=== PATIENT | female | born 2000 | race Caucasian/White ===

== ENCOUNTER 2018-10-10 11:07 | Inpatient (IN) ==
--- NOTE | 2018-10-10 12:04 | Emergency Department Note ---
Disposition Clinical Impression: Suicidal ideation Disposition: Admitted As Inpatient Condition: Fair Referrals: NONE,PCP [Primary Care Provider] - Forms: ED Satisfaction Letter Time of Disposition: 15:27 General Adult HPI - General Chief complaint: ED Psychiatric Symptoms Stated complaint: SI Time Seen by Provider: 10/10/18 11:15 Source: patient, EMS Nursing Notes Reviewed: Yes Vital Signs Reviewed: Yes - History of Present Illness HPI Narrative: She presents with complaints of suicidal ideation which is worsening for the last several days, she does have a plan to take sleeping pills, no homicidal ideation, no visual or auditory hallucinations. Does have constant chest pain since she was a child which is unchanged from baseline. Nonexertional. No diaphoresis or dyspnea. She denies any pain or swelling of the lower extremities. Social history: No smoking, alcohol, drugs Pain Scale: 0 - Related Data Home Medications Medication Instructions Recorded Confirmed Omeprazole 02/16/18 Ventolin Hfa 02/16/18 Albuterol Inhaler 05/07/18 Cetirizine HCl 05/07/18 Effexor 05/07/18 Singulair 05/07/18 Previous Rx's Medication Instructions Recorded Ondansetron ODT [Zofran ODT] 4 mg SL Q6HR PRN #10 tab.rapdis 08/02/18 Allergies Allergy/AdvReac Type Severity Reaction Status Date / Time dicyclomine [From Bentyl] AdvReac Numbness Verified 10/06/18 08:51 Review of Systems: Constitutional: No fever Vision: No blurred vision ENT: No rhinorrhea Respiratory: No cough Allergic: No allergies : No blood in urine GI: No blood in stool Hematologic: No bruising Dermatologic: No skin rash Musculoskeletal: No pain in the extremities Neuro: No numbness of the extremities Past Medical History - Past Medical History Medical history: Reports: GERD, other Surgical history: Reports: orthopedic, other Psychiatric history: Reports: anxiety, depression, PTSD [employer] history: Reports: polycystic ovary syndrome - Social History Smoking Status: Never smoker Smokeless Tobacco Status: No Alcohol use: Reports: none Drug use: Reports: marijuana, other Physical Exam CONSTITUTIONAL: Alert and oriented X3, well-nourished, well appearing, in no apparent distress HEAD: Normocephalic; atraumatic. EYES: PERRL, no scleral icterus. NOSE: The nose is normal in appearance without rhinorrhea RESP: Normal chest excursion with respiration; breath sounds clear and equal bilaterally; no wheezes, rhonchi, or rales CARD: Regular rhythm, without murmurs, rub or gallop ABD: Non-distended; non-tender, soft,without rigidity, rebound or guarding SKIN: Normal for age and race; warm and dry; no apparent lesions - General General appearance: alert Course Vital Signs Temperature 97.9 F 10/10/18 11:16 Pulse Rate 95 10/10/18 11:16 Respiratory Rate 17 10/10/18 11:16 Blood Pressure 147/110 10/10/18 11:16 O2 Sat by Pulse Oximetry 98 10/10/18 11:16 Temperature 97.9 F 10/10/18 11:16 Pulse Rate 95 10/10/18 11:16 Respiratory Rate 17 10/10/18 11:16 Blood Pressure 147/110 10/10/18 11:16 O2 Sat by Pulse Oximetry 98 10/10/18 11:16 Oxygen Delivery Oxygen Delivery Room Air Medical Decision Making - [facility] Narrative Medical decision making narrative: Patient does have labs and urine tests are ordered and will be seen by mental health. [place] slip is signed. 1204 - Lab Data Result diagrams: 10/10/18 12:40 10/10/18 12:40 Lab Results 10/10/18 10/10/18 10/10/18 Range/Units 11:33 11:33 11:33 WBC (4.3-11.1) K/mcL RBC (3.82-4.97) M/mcL Hgb (11.5-15.4) g/dL Hct (35.3-44.9) % MCV (83.0-100.0) fL MCH (28.0-33.3) pg MCHC (31.6-35.5) g/dL RDW (11.5-14.5) % Plt Count (140-400) K/mcL MPV (9.4-12.4) fL Immature Gran % (0-4) % Seg Neutrophils % % Lymphocytes % % Monocytes % % Eosinophils % % Basophils % % Neutrophils # (1.6-8.9) K/mcL Lymphocytes # (0.6-4.6) K/mcL Monocytes # (0.0-1.3) K/mcL Eosinophils # (0.0-0.6) K/mcL Basophils # (0.0-0.2) K/mcL Sodium (136-145) mEq/L Potassium (3.5-5.1) mEq/L Chloride (98-107) mEq/L Carbon Dioxide (23-29) mEq/L BUN (6-20) mg/dL Creatinine (0.60-1.20) mg/dL Est GFR ( Amer) (> 60) Est GFR (Non-Af Amer) (> 60) BUN/Creatinine Ratio (6-26) Glucose (70-105) mg/dL Calculated Osmolality (280-300) Calcium (8.6-10.3) mg/dL Urine Color Yellow (Yellow) Urine Clarity Clear (Clear) Urine pH 7.0 (5.0-8.0) pH Units Ur Specific [place] 1.022 (1.010-1.025) Urine Protein Negative (Neg-Trace) mg/dL Urine Glucose (UA) Normal (Normal) mg/dL Urine Ketones Negative (Negative) mg/dL Urine Blood Trace H (Negative) Urine Nitrite Negative (Negative) Urine Bilirubin Negative (Negative) Urine Urobilinogen Normal (Normal) mg/dL Ur Leukocyte Esterase Negative (Negative) Urine Microscopic RBC 3-5 H (0-3) per hpf Urine Microscopic WBC 3-5 H (0-3) per hpf Ur Squamous Epith Cells Many H (None-Few) per lpf Urine Bacteria None Seen (None-Few) per hpf Hyaline Casts None Seen (None-Few) per lpf Urine Test Negative (Negative) Salicylates (15.0-30.0) mg/dL Urine Opiates Screen Negative (Pzhdtt=661) ng/mL Acetaminophen (10-20) mcg/mL Ur Barbiturates Screen Negative (Rsnnpe=304) ng/mL Ur Phencyclidine Scrn Negative (Cutoff=25) ng/mL Ur Amphetamines Screen Negative (Erpbkg=7882) ng/mL U Benzodiazepines Scrn Negative (Dipxxq=205) ng/mL Urine Cocaine Screen Negative (Cutoff= 300) ng/mL U Marijuana (THC) Screen Negative (Cutoff = 50) ng/mL Ur Drug Screen Interp See Below Ethyl Alcohol (Less than 10) mg/dL 10/10/18 10/10/18 Range/Units 12:40 12:40 WBC 8.6 (4.3-11.1) K/mcL RBC 5.01 H (3.82-4.97) M/mcL Hgb 13.7 (11.5-15.4) g/dL Hct 41.0 (35.3-44.9) % MCV 81.8 L (83.0-100.0) fL MCH 27.3 L (28.0-33.3) pg MCHC 33.4 (31.6-35.5) g/dL RDW 12.7 (11.5-14.5) % Plt Count 333 (140-400) K/mcL MPV 8.6 L (9.4-12.4) fL Immature Gran % 0.3 (0-4) % Seg Neutrophils % 70.5 % Lymphocytes % 18.4 % Monocytes % 8.6 % Eosinophils % 1.5 % Basophils % 0.7 % Neutrophils # 6.1 (1.6-8.9) K/mcL Lymphocytes # 1.6 (0.6-4.6) K/mcL Monocytes # 0.7 (0.0-1.3) K/mcL Eosinophils # 0.1 (0.0-0.6) K/mcL Basophils # 0.1 (0.0-0.2) K/mcL Sodium 139 (136-145) mEq/L Potassium 3.9 (3.5-5.1) mEq/L Chloride 105 (98-107) mEq/L Carbon Dioxide 26 (23-29) mEq/L BUN 12 (6-20) mg/dL Creatinine 0.68 (0.60-1.20) mg/dL Est GFR ( Amer) > 60 (> 60) Est GFR (Non-Af Amer) > 60 (> 60) BUN/Creatinine Ratio 18 (6-26) Glucose 95 (70-105) mg/dL Calculated Osmolality 288 (280-300) Calcium 9.4 (8.6-10.3) mg/dL Urine Color (Yellow) Urine Clarity (Clear) Urine pH (5.0-8.0) pH Units Ur Specific [place] (1.010-1.025) Urine Protein (Neg-Trace) mg/dL Urine Glucose (UA) (Normal) mg/dL Urine Ketones (Negative) mg/dL Urine Blood (Negative) Urine Nitrite (Negative) Urine Bilirubin (Negative) Urine Urobilinogen (Normal) mg/dL Ur Leukocyte Esterase (Negative) Urine Microscopic RBC (0-3) per hpf Urine Microscopic WBC (0-3) per hpf Ur Squamous Epith Cells (None-Few) per lpf Urine Bacteria (None-Few) per hpf Hyaline Casts (None-Few) per lpf Urine Test (Negative) Salicylates < 2.5 L (15.0-30.0) mg/dL Urine Opiates Screen (Yzkcir=296) ng/mL Acetaminophen < 10 L (10-20) mcg/mL Ur Barbiturates Screen (Lkcacu=536) ng/mL Ur Phencyclidine Scrn (Cutoff=25) ng/mL Ur Amphetamines Screen (Lipzjz=2504) ng/mL U Benzodiazepines Scrn (Qgqcmx=498) ng/mL Urine Cocaine Screen (Cutoff= 300) ng/mL U Marijuana (THC) Screen (Cutoff = 50) ng/mL Ur Drug Screen Interp Ethyl Alcohol < 10 (Less than 10) mg/dL
[2018-10-10 12:32] LABS: Bilirubin,Urine Negative (Negative); Blood,Urine Trace (Negative); Clarity,Urine Clear (Clear); Color,Urine Yellow (Yellow); Glucose,Urine (UA) Normal (Normal); Ketones,Urine Negative (Negative); Leukocyte Esterase,Urine Negative (Negative); Nitrite,Urine Negative (Negative); Protein,Urine Negative (Neg-Trace); Specific Gravity,Urine 1.022 (1.010-1.025); Urobilinogen,Urine Normal (Normal)
[2018-10-10 12:35] LABS: Bacteria,Urine None Seen per hpf (None-Few); Hyaline Casts,Urine None Seen per lpf (None-Few); Squamous Epithelial Cell,Urine Many per lpf (None-Few)
[2018-10-10 12:40] LABS: Amphetamine Screen,Urine Negative ng/mL (Cutoff=1000); Barbiturate Screen,Urine Negative ng/mL (Cutoff=200); Benzodiazepines Screen,Urine Negative ng/mL (Cutoff=200); Cannabinoid Screen,Urine Negative ng/mL (Cutoff = 50); Cocaine Screen,Urine Negative ng/mL (Cutoff= 300); Opiate Screen,Urine Negative ng/mL (Cutoff=300); Phencyclidine Screen,Urine Negative ng/mL (Cutoff=25)
[2018-10-10 13:12] LABS: Basophils # 0.1 K/mcL (0.0-0.2); Basophils % 0.7 %; Eosinophils # 0.1 K/mcL (0.0-0.6); Eosinophils % 1.5 %; Hemoglobin 13.7 g/dL (11.5-15.4); Immature Granulocytes % 0.3 % (0-4); Lymphocytes # 1.6 K/mcL (0.6-4.6); Lymphocytes % 18.4 %; Mean Corpuscular HGB Conc 33.4 g/dL (31.6-35.5); Mean Corpuscular Hemoglobin 27.3 pg (28.0-33.3); Mean Corpuscular Volume 81.8 fL (83.0-100.0); Mean Platelet Volume 8.6 fL (9.4-12.4); Monocytes # 0.7 K/mcL (0.0-1.3); Monocytes % 8.6 %; Neutrophils # 6.1 K/mcL (1.6-8.9); Platelet Count 333 K/mcL (140-400); Red Blood Count 5.01 M/mcL (3.82-4.97); Red Cell Distribution Width 12.7 % (11.5-14.5); Segmented Neutrophils % 70.5 %
[2018-10-10 13:33] LABS: Acetaminophen < 10 mcg/mL (10-20); BUN/Creatinine Ratio 18 (6-26); Blood Urea Nitrogen 12 mg/dL (6-20); Calcium 9.4 mg/dL (8.6-10.3); Carbon Dioxide 26 mEq/L (23-29); Chloride 105 mEq/L (98-107); Ethanol < 10 mg/dL (Less than 10); Glucose 95 mg/dL (70-105); Osmolality,Calculated 288 (280-300); Potassium 3.9 mEq/L (3.5-5.1); Salicylate < 2.5 mg/dL (15.0-30.0); Sodium 139 mEq/L (136-145); eGFR For Non-African Americans > 60 (> 60)
[2018-10-10] MEDS ORDERED: Mag Hydrox/Al Hydrox/Simeth 30 ML UDC PO PRN (15:49)
[2018-10-10] MEDS ORDERED: Haloperidol Lactate 5 MG/ML VIAL IM PRN (15:49)
[2018-10-10] MEDS ORDERED: *HR* LORazepam 2 MG/ML VIAL IM PRN (15:49)
[2018-10-10] MEDS ORDERED: Acetaminophen 325 MG TABLET PO PRN (15:49)
[2018-10-10] MEDS ORDERED: MOM Conc 10 ML UD.LIQ PO PRN (15:49)
[2018-10-10] MEDS ORDERED: traZODone 50 MG TABLET PO PRN (15:49)
[2018-10-10] MEDS ORDERED: *HR* LORazepam 1 MG TABLET PO PRN (15:49)
[2018-10-10] MEDS: hydrOXYzine pamoate 25 MG CAPSULE PO PRN (20:57)
--- NOTE | 2018-10-11 08:33 | Psychiatry History & Physical ---
Date of Encounter: 10/11/18 Time of Encounter: 08:52 History of Present Illness Patient Stated Chief Complaint: "I'm just so depressed" Medicare Admission Attestation: For traditional Medicare patients the provided hospital inpatient services are reasonable and necessary and in the case of services not specified as inpatient-only under 42 CFR 419.22 (n), that they are appropriately provided as inpatient services in accordance 42 CFR 412.3. For Critical Access Hospital the patient may reasonably be expected to be discharged or transferred to a hospital within 96 hours after admission to the Critical Access Hospital. Admitted From: Emergency Dept Plans for Post Hospital Care: Home History of Present Illness: Ms. Null is a 18 year old female She presents with complaints of suicidal ideation which is worsening for the last several days, she does have a plan to take sleeping pills, no homicidal ideation, no visual or auditory hallucinations. Does have constant chest pain since she was a child which is unchanged from baseline. Nonexertional. No diaphoresis or dyspnea. She denies any pain or swelling of the lower extremities. Social history: No smoking, alcohol, drugs. She reports sad mood, decreased interest, feelings of guilt and worthlessness, and hopelessness. She reports anxiety with excessive worries about a number of different topics which she finds difficult to control and which are associated with restlessness and muscle tension. She reports a history of manic symptoms including Elevated irritable mood, increased goal-directed activity, and decreased need for sleep. She denies present or historical auditory or visual hallucinations. She is motivated to get back to her 8-month-old baby brother who she cares deeply for him to get back to school. Past Med Surg Social Fam HX - Past Medical History Source: patient Medical history: GERD - Past Psychiatric History Psychiatric history: Reports: anxiety, bipolar, depression, PTSD. Denies: prior suicide attempt, previous psychiatric hospitalization Past psychiatric history details: She is linked with [facility] where she has a psychiatrist and therapist. She says they have diagnosed with bipolar and posttraumatic stress disorder related to a history of trauma. She denies prior hospitalizations or suicide attempts. He feels the Effexor is helpful. Her Abilify was raised to 5 mg about 1 month ago and she is not sure if this is helping. Family psychiatric history: Yes Family Psychiatric History Details: Her father has bipolar disorder Family History of Suicide: None - Past Surgical History Surgical History: orthopedic, other - Social History Smoking Status: Never smoker Smokeless Tobacco Status: No Alcohol use: occasionally Drug use: marijuana Occupational status: employed Current living situation: With Family Activity Level: Independent ambulation Recent Out of Country Travel Within the Last 8 Weeks: No Exposure or Possible Exposure to Illness During Travel: No Additional social history: She had a recent breakup. She had to place her home up for sale due to not having the additional income from her ex. She has been living with her parents which has been difficult as she has a strained relationship with her mother. She has an 8-month-old brother who she is very close with. She is employed as a deliverer pharmacy. She graduated high school. Medications & Allergies ARIPiprazole [Abilify] 5 mg PO DAILY 10/10/18 [History] Albuterol Sulfate [Albuterol Inhaler] 2 puff IH Q6H PRN 10/10/18 [History] Cetirizine HCl [Zyrtec] 10 mg PO DAILY PRN 10/10/18 [History] Fluticasone Propionate Nasal [Flonase] 50 mcg NS BID PRN 10/10/18 [History] Montelukast [Singulair] 10 mg PO DAILY 10/10/18 [History] Omeprazole [PriLOSEC] 40 mg PO DAILY 10/10/18 [History] RX: Biotin 1,000 mcg PO DAILY 10/10/18 [History] Venlafaxine XR (24 HR) [Effexor XR] 150 mg PO DAILY 10/10/18 [History] Allergy/AdvReac Type Severity Reaction Status Date / Time dicyclomine [From Bentyl] AdvReac Numbness Verified 10/06/18 08:51 Review of Systems Constitutional: Reports: weakness Eyes: Denies: eye pain Ears, Nose, Throat: Denies: ear pain Cardiovascular: Reports: dyspnea on exertion Respiratory: Reports: dyspnea Gastrointestinal: Denies: abdominal pain Musculoskeletal: Denies: joint pain Integumentary: Denies: rash Neurological: Denies: headache Psychiatric: Reports: depression, anxiety, suicidal ideation Endocrine: Reports: fatigue Hematologic/Lymphatic: Denies: easy bleeding Exam - HEENT Head exam IM: Present: atraumatic Eye exam IM: Present: EOMI, normal appearance, PERRL ENT exam IM: Present: normal exam - Neurological Neurological exam: Present: CN II-XII intact - Respiratory Respiratory exam IM: Present: CTAB - GI/Abdominal GI/Abdominal exam IM: Present: normal bowel sounds, soft. Absent: tenderness - Extremities Extremities exam IM: Present: full ROM - Skin Skin exam IM: Present: dry, warm - Constitutional Vitals: Temp Pulse Resp BP Pulse Ox 97.8 F 83 16 129/84 97 10/10/18 21:00 10/10/18 21:00 10/10/18 21:00 10/10/18 21:00 10/10/18 21:00 General appearance: age & developmentally appropriate, well-groomed, well- nourished - Musculoskeletal Gait: normal Station: relaxed Strength & Tone: normal for patient - Psychiatric Patient Orientation: Yes Person, Yes Time, Yes Place Level of alertness: Alert Behavior: calm, cooperative Psychomotor activity: Normal Eye Contact: Maintains Eye Contact Mood Description: Euthymic/stable, Depressed Patient description of mood: "Depressed" Affect description: congruent with mood, dysphoric Speech Volume: Normal Speech pattern: normal rate, normal rhythm, normal tone, fluent, spontaneous Language & Vocabulary: consistent with education Thought Process: Linear, Goal Oriented Thought Content: Yes Suicidal ideation, No Homicidal ideation, No Overt delusions Perceptual Disturbances: No Auditory hallucinations, No Visual hallucinations Attention Span Ability: Capable of Focused Attention Memory Description: Grossly Intact Patient Reliability: Reliable Historian Fund of knowledge: Yes abstraction ability, Yes average, Yes aware of current events Intelligence Estimate: Average Judgment: Fair Insight: Partial Results - Drug Levels and Toxicology Drug Levels and Toxicology: Drug Levels and Toxicity 10/10/18 10/10/18 11:33 12:40 Urine Opiates Screen Negative Acetaminophen < 10 L Ur Barbiturates Screen Negative Ur Phencyclidine Scrn Negative Ur Amphetamines Screen Negative U Benzodiazepines Scrn Negative Urine Cocaine Screen Negative U Marijuana (THC) Screen Negative Ethyl Alcohol < 10 - Labs Labs: Laboratory Last Values WBC 8.6 K/mcL (4.3-11.1) 10/10/18 12:40 RBC 5.01 M/mcL (3.82-4.97) H 10/10/18 12:40 Hgb 13.7 g/dL (11.5-15.4) 10/10/18 12:40 Hct 41.0 % (35.3-44.9) 10/10/18 12:40 MCV 81.8 fL (83.0-100.0) L 10/10/18 12:40 MCH 27.3 pg (28.0-33.3) L 10/10/18 12:40 MCHC 33.4 g/dL (31.6-35.5) 10/10/18 12:40 RDW 12.7 % (11.5-14.5) 10/10/18 12:40 Plt Count 333 K/mcL (140-400) 10/10/18 12:40 MPV 8.6 fL (9.4-12.4) L 10/10/18 12:40 Immature Gran % 0.3 % (0-4) 10/10/18 12:40 Seg Neutrophils % 70.5 % 10/10/18 12:40 Lymphocytes % 18.4 % 10/10/18 12:40 Monocytes % 8.6 % 10/10/18 12:40 Eosinophils % 1.5 % 10/10/18 12:40 Basophils % 0.7 % 10/10/18 12:40 Neutrophils # 6.1 K/mcL (1.6-8.9) 10/10/18 12:40 Lymphocytes # 1.6 K/mcL (0.6-4.6) 10/10/18 12:40 Monocytes # 0.7 K/mcL (0.0-1.3) 10/10/18 12:40 Eosinophils # 0.1 K/mcL (0.0-0.6) 10/10/18 12:40 Basophils # 0.1 K/mcL (0.0-0.2) 10/10/18 12:40 Sodium 139 mEq/L (136-145) 10/10/18 12:40 Potassium 3.9 mEq/L (3.5-5.1) 10/10/18 12:40 Chloride 105 mEq/L (98-107) 10/10/18 12:40 Carbon Dioxide 26 mEq/L (23-29) 10/10/18 12:40 BUN 12 mg/dL (6-20) 10/10/18 12:40 Creatinine 0.68 mg/dL (0.60-1.20) 10/10/18 12:40 Est GFR ( Amer) > 60 (> 60) 10/10/18 12:40 Est GFR (Non-Af Amer) > 60 (> 60) 10/10/18 12:40 BUN/Creatinine Ratio 18 (6-26) 10/10/18 12:40 Glucose 95 mg/dL (70-105) 10/10/18 12:40 Calculated Osmolality 288 (280-300) 10/10/18 12:40 Calcium 9.4 mg/dL (8.6-10.3) 10/10/18 12:40 Urine Color Yellow (Yellow) 10/10/18 11:33 Urine Clarity Clear (Clear) 10/10/18 11:33 Urine pH 7.0 pH Units (5.0-8.0) 10/10/18 11:33 Ur Specific [place] 1.022 (1.010-1.025) 10/10/18 11:33 Urine Protein Negative mg/dL (Neg-Trace) 10/10/18 11:33 Urine Glucose (UA) Normal mg/dL (Normal) 10/10/18 11:33 Urine Ketones Negative mg/dL (Negative) 10/10/18 11:33 Urine Blood Trace (Negative) H 10/10/18 11:33 Urine Nitrite Negative (Negative) 10/10/18 11:33 Urine Bilirubin Negative (Negative) 10/10/18 11:33 Urine Urobilinogen Normal mg/dL (Normal) 10/10/18 11:33 Ur Leukocyte Esterase Negative (Negative) 10/10/18 11:33 Urine Microscopic RBC 3-5 per hpf (0-3) H 10/10/18 11:33 Urine Microscopic WBC 3-5 per hpf (0-3) H 10/10/18 11:33 Ur Squamous Epith Cells Many per lpf (None-Few) H 10/10/18 11:33 Urine Bacteria None Seen per hpf (None-Few) 10/10/18 11:33 Hyaline Casts None Seen per lpf (None-Few) 10/10/18 11:33 Urine Test Negative (Negative) 10/10/18 11:33 Salicylates < 2.5 mg/dL (15.0-30.0) L 10/10/18 12:40 Urine Opiates Screen Negative ng/mL (Vywmhj=410) 10/10/18 11:33 Acetaminophen < 10 mcg/mL (10-20) L 10/10/18 12:40 Ur Barbiturates Screen Negative ng/mL (Udyhqq=297) 10/10/18 11:33 Ur Phencyclidine Scrn Negative ng/mL (Cutoff=25) 10/10/18 11:33 Ur Amphetamines Screen Negative ng/mL (Aikbxd=8822) 10/10/18 11:33 U Benzodiazepines Scrn Negative ng/mL (Euhtlk=976) 10/10/18 11:33 Urine Cocaine Screen Negative ng/mL (Cutoff= 300) 10/10/18 11:33 U Marijuana (THC) Screen Negative ng/mL (Cutoff = 50) 10/10/18 11:33 Ur Drug Screen Interp See Below 10/10/18 11:33 Ethyl Alcohol < 10 mg/dL (Less than 10) 10/10/18 12:40 Assessment and Plan (1) Major depressive disorder, recurrent, severe w/o psychotic behavior Current visit: Yes Status: Acute Plan: Admit inpatient for safety and stabilization, Close observation, Suicide Precautions per unit protocol, Encourage participation in unit milieu, Group Therapy, Monitor sleep, Monitor appetite Additional Plan: We will increase Effexor XR by 37.5 mg to 187.5 mg for further treatment of depression and anxiety. We will continue Abilify. Will encourage group attendance. Therapist will work on discharge planning. Risks, benefits, side effects, alternatives discussed w/pt: Yes Patient agreeable to treatment: Yes Plans for Post Hospital Care: Home Estimated Length of Stay (Days): 2
[2018-10-11] MEDS ORDERED: Fluticasone Propionate Nasal 50 MCG/SPRAY BOTTLE NS PRN (09:45)
[2018-10-11] MEDS ORDERED: Topiramate 25 MG TABLET PO PRN (09:48)
[2018-10-11] MEDS ORDERED: Venlafaxine XR (24 HR) 150 MG CAP.ER.24H PO SCH (10:00)
[2018-10-11] MEDS: ARIPiprazole 5 MG TABLET PO SCH (10:34)
[2018-10-11] MEDS: [UNRECOGNIZED DRUG - OTHER] PO SCH (11:11)
[2018-10-11] MEDS: BIOTIN 1000 MCG PO SCH (11:11)
[2018-10-11] MEDS: VENLAFAXINE PO SCH (11:19)
[2018-10-11] MEDS: hydrOXYzine pamoate 25 MG CAPSULE PO PRN (21:07)
[2018-10-12] MEDS: BIOTIN 1000 MCG PO SCH (08:55)
[2018-10-12] MEDS: VENLAFAXINE PO SCH (08:55)
[2018-10-12] MEDS: ARIPiprazole 5 MG TABLET PO SCH (08:55)
[2018-10-12] MEDS: [UNRECOGNIZED DRUG - OTHER] PO SCH (08:55)
[2018-10-12 09:28] VITALS: BP 143/92
--- NOTE | 2018-10-12 10:29 | Discharge Summary ---
Date of Encounter: 10/12/18 Time of Encounter: 10:25 Diagnosis - Discharge Diagnosis (1) Major depressive disorder, recurrent, severe w/o psychotic behavior Status: Acute Medications - Discharge Medications Prescriptions: hydrOXYzine pamoate [HydrOXYzine Pamoate] 25 mg PO TID PRN #30 capsule PRN Reason: Anxiety Venlafaxine XR (24 HR) [Effexor XR] 37.5 mg PO DAILY #30 cap.er.24h ARIPiprazole [Abilify] 5 mg PO DAILY 10/10/18 [History] Albuterol Sulfate [Albuterol Inhaler] 2 puff IH Q6H PRN 10/10/18 [History] Biotin 1,000 mcg PO DAILY 10/10/18 [History] Cetirizine HCl [Zyrtec] 10 mg PO DAILY PRN 10/10/18 [History] Fluticasone Propionate Nasal [Flonase] 50 mcg NS BID PRN 10/10/18 [History] Montelukast [Singulair] 10 mg PO DAILY 10/10/18 [History] Omeprazole [PriLOSEC] 40 mg PO DAILY 10/10/18 [History] Topiramate [Topamax] 50 mg PO HS PRN tablet 10/12/18 [Rx] Venlafaxine XR (24 HR) [Effexor XR] 37.5 mg PO DAILY #30 cap.er.24h 10/12/18 [Rx] Venlafaxine XR (24 HR) [Effexor Xr] 187.5 mg PO DAILY #0 10/12/18 [Rx] hydrOXYzine pamoate [HydrOXYzine Pamoate] 25 mg PO TID PRN #30 capsule 10/12/18 [Rx] Allergy/AdvReac Type Severity Reaction Status Date / Time dicyclomine [From Bentyl] AdvReac Numbness Verified 10/06/18 08:51 Results Procedures and tests throughout hospitalization: Completed Lab Orders Category Date Time Status Acetaminophen Stat Lab 10/10/18 12:40 Completed Basic Metabolic Panel Stat Lab 10/10/18 12:40 Completed Complete Blood Count [HEME] Stat Lab 10/10/18 12:40 Completed Drug Screen, Urine [UCHEM] Stat Lab 10/10/18 11:33 Completed Ethanol Stat Lab 10/10/18 12:40 Completed Test Result, Urine [URIN] Stat Lab 10/10/18 11:33 Completed Salicylate Stat Lab 10/10/18 12:40 Completed Urinalysis reflex Microscopic [URIN] Stat Lab 10/10/18 11:33 Completed Provider Date of admission: 10/10/18 15:45 Primary care physician: PCP NONE Discharging clinician: Shamika Phipps Psychiatry Exam - Constitutional Vitals: Temp Pulse Resp BP Pulse Ox 98.1 F 91 20 143/92 98 10/12/18 09:00 10/12/18 09:00 10/12/18 09:00 10/12/18 09:00 10/12/18 09:00 General appearance: age & developmentally appropriate, well-groomed, well- nourished - Musculoskeletal Gait: normal Station: relaxed Strength & Tone: normal for patient - Psychiatric Patient Orientation: Yes Person, Yes Time, Yes Place Level of alertness: Alert Behavior: calm, cooperative Psychomotor activity: Normal Eye Contact: Maintains Eye Contact Mood Description: Euthymic/stable Affect description: congruent with mood, full range Speech Volume: Normal Speech pattern: normal rate, normal rhythm, normal tone, fluent, spontaneous Language & Vocabulary: consistent with education Thought Process: Linear, Goal Oriented Thought Content: No Suicidal ideation, No Homicidal ideation, No Overt delusions Perceptual Disturbances: No Auditory hallucinations, No Visual hallucinations Attention Span Ability: Capable of Focused Attention Memory Description: Grossly Intact Patient Reliability: Reliable Historian Fund of knowledge: Yes abstraction ability, Yes aware of current events Intelligence Estimate: Average Judgment: Good Insight: Full Hospital Course Hospital course: Ms. Null is a 18 year old female Time spent discussing smoking cessation with patient: 3 to 10 minutes Does patient wish to continue nicotine replacement upon disc: No - Time Spent with Patient Total time spent providing and/or coordinating discharge services: Less than 30 minutes (Interval history reviewed. Available labs reviewed . Ps ychotherapy provided. Patient had an opportunity to ask questions and address concerns. Patient was in agreement with the treatment plan. The risks benefits and side effects of medications were discussed with the patient, including alternatives and treatment. The patient was educated on the abstaining from any alcohol or illicit substances, following up with all scheduled appointments, and taking all medications as prescribed.) Assessment and Plan - Patient/Caregiver Discharge Instructions Activity: resume usual activities as tolerated Diet: regular diet Additional Instructions: Continue current medications. Follow up with outpatient mental health. Encourage continued therapy in a group or individual setting. The patient was discharged to home. - Follow up Plan Follow up with: NONE,PCP [Primary Care Provider] - Functional capacity at discharge: independent ambulation Overall status at discharge: Stable Disposition: Home, Self-Care Quality - Multiple Antipsychotics Patient discharged on 2 or more antipsychotic medications: No Procedures - Procedures Procedures: Medication Management, Crisis Stabilization, Supportive Therapy, Group Therapy, Psychoeducational Therapy
== END 2018-10-12 13:00 | disposition home or self-care (01) | DRG 885 ==
LOC: EMEROOARM 11:07 → 1ANU 15:45
PROVIDERS: ADMIT Psychiatry & Neurology Psychiatry; ATTEND Psychiatry & Neurology Psychiatry

== ENCOUNTER 2019-04-24 12:14 | Observation (INO) ==
[2019-04-24 13:03] LABS: Hematocrit 39.8 % (35.3-44.9); Hemoglobin 13.7 g/dL (11.5-15.4); Immature Granulocytes % 0.6 % (0-4); Mean Corpuscular HGB Conc 34.4 g/dL (31.6-35.5); Mean Corpuscular Hemoglobin 28.4 pg (28.0-33.3); Mean Corpuscular Volume 82.4 fL (83.0-100.0); Mean Platelet Volume 8.4 fL (9.4-12.4); Monocytes % 7.2 %; Platelet Count 305 K/mcL (140-400); Red Blood Count 4.83 M/mcL (3.82-4.97); Red Cell Distribution Width 12.5 % (11.5-14.5); Segmented Neutrophils % 73.5 %; White Blood Count 8.5 K/mcL (4.3-11.1)
[2019-04-24 13:04] LABS: Basophils # 0.1 K/mcL (0.0-0.2); Basophils % 0.7 %; Eosinophils # 0.2 K/mcL (0.0-0.6); Lymphocytes # 1.4 K/mcL (0.6-4.6); Monocytes # 0.6 K/mcL (0.0-1.3); Neutrophils # 6.3 K/mcL (1.6-8.9)
[2019-04-24 13:22] LABS: Acetaminophen < 10 mcg/mL (10-20); BUN/Creatinine Ratio 16 (6-26); Blood Urea Nitrogen 11 mg/dL (6-20); Carbon Dioxide 24 mEq/L (23-29); Chloride 106 mEq/L (98-107); Ethanol 10 mg/dL (Less than 10); Glucose 97 mg/dL (70-105); Osmolality,Calculated 287 (280-300); Potassium 3.6 mEq/L (3.5-5.1); Salicylate < 2.5 mg/dL (15.0-30.0); Sodium 139 mEq/L (136-145); eGFR For African Americans > 60 (> 60); eGFR For Non-African Americans > 60 (> 60)
[2019-04-24 13:42] LABS: Bilirubin,Urine Negative (Negative); Blood,Urine Negative (Negative); Clarity,Urine Clear (Clear); Color,Urine Yellow (Yellow); Glucose,Urine (UA) Normal (Normal); Ketones,Urine Negative (Negative); Leukocyte Esterase,Urine Negative (Negative); Nitrite,Urine Negative (Negative); Protein,Urine Negative (Neg-Trace); Specific Gravity,Urine 1.025 (1.010-1.025); Urobilinogen,Urine Normal (Normal)
[2019-04-24 14:08] LABS: Amphetamine Screen,Urine Negative ng/mL (Cutoff=1000); Barbiturate Screen,Urine Negative ng/mL (Cutoff=200); Benzodiazepines Screen,Urine Negative ng/mL (Cutoff=200); Cannabinoid Screen,Urine Negative ng/mL (Cutoff = 50); Cocaine Screen,Urine Negative ng/mL (Cutoff= 300); Opiate Screen,Urine Negative ng/mL (Cutoff=300); Phencyclidine Screen,Urine Negative ng/mL (Cutoff=25)
--- NOTE | 2019-04-24 15:29 | Emergency Department Note ---
Disposition Clinical Impression: Suicidal ideations Disposition: Admitted As Inpatient Condition: Fair Time of Disposition: 15:00 Psych HPI - General Chief Complaint: ED Psychiatric Symptoms Stated Complaint: SI Time Seen by Provider: 04/24/19 12:22 Source: patient Nursing Notes Reviewed: Yes Vital Signs Reviewed: Yes - History of Present Illness HPI Narrative: 19-year-old female was us emergency department with concern for suicidal ideations. Patient states that she has a gun at home, knows how to loaded, and will shoot herself. States that she was recently outside of the house where for mom with a doing great. She says something stabbing, and she had to move back in and when she is around her mom she is really depressed and wants to kill herself. Patient denies any taking any drugs not prescribed to her. Patient states that she has never attempted to kill herself before. She has been admitted to our psychiatric floor in the past. Patient has no other complaints at this time. - Related Data Home Medications Medication Instructions Recorded Confirmed Albuterol Sulfate [Proventil 2 puff IH Q6H PRN 10/10/18 04/24/19 Inhaler] Biotin 1,000 mcg PO DAILY 10/10/18 04/24/19 Cetirizine HCl [Zyrtec] 10 mg PO DAILY PRN 10/10/18 04/24/19 Fluticasone Propionate Nasal 1 spray NS BID PRN 10/10/18 04/24/19 [Flonase] Omeprazole [PriLOSEC] 40 mg PO DAILY 10/10/18 04/24/19 Venlafaxine XR (24 HR) [Effexor Xr] 300 mg PO DAILY 04/24/19 04/24/19 Allergies Allergy/AdvReac Type Severity Reaction Status Date / Time dicyclomine [From Bentyl] AdvReac Numbness Verified 10/06/18 08:51 All systems ED: reviewed and negative except as stated. Review of Systems: As Per HPI Constitutional: Denies: fever Cardiovascular: Denies: chest pain Respiratory: Denies: dyspnea Gastrointestinal: Denies: abdominal pain Past Medical History - Past Medical History Attestation: Yes The following information was validated with the patient. Medical history: Reports: GERD Surgical history: Reports: orthopedic, other Psychiatric history: Reports: anxiety, bipolar, depression, PTSD RESISTOR TESTER history: Reports: polycystic ovary syndrome - Social History Smoking Status: Never smoker Smokeless Tobacco Status: No Alcohol use: Reports: occasionally Drug use: Reports: marijuana Physical Exam - General Limitations: no limitations General appearance: alert, in no apparent distress - Head Head exam: normocephalic - Eye Eye exam: Present: EOMI - ENT ENT exam: mucous membranes moist - Neck Neck exam: Present: trachea midline - Chest Chest inspection: Present: symmetric chest wall rise - Respiratory Respiratory exam: Present: normal lung sounds bilaterally - Cardiovascular Cardiovascular exam: Present: regular rate, normal rhythm, normal heart sounds - Abdominal Exam Abdominal exam: Present: soft, Non-Tender. Absent: distention, guarding, rebound, rigidity - Extremities Exam Extremities exam: Present: normal capillary refill - Back Exam Back exam: Present: full ROM - Neurological Exam Neurological exam: Present: alert, oriented X3 - Psychiatric Psychiatric exam: Present: normal affect, normal mood - Skin Skin exam: Present: warm, dry, intact, normal color. Absent: rash Course Vital Signs Temperature 98.3 F 04/24/19 12:43 Pulse Rate 97 04/24/19 12:43 Respiratory Rate 18 04/24/19 12:43 Blood Pressure 132/85 04/24/19 12:43 O2 Sat by Pulse Oximetry 96 04/24/19 12:43 Temperature 98.3 F 04/24/19 12:43 Pulse Rate 97 04/24/19 12:43 Respiratory Rate 18 04/24/19 12:43 Blood Pressure 132/85 04/24/19 12:43 O2 Sat by Pulse Oximetry 96 04/24/19 12:43 Oxygen Delivery Oxygen Delivery Room Air Psych - MDM Narrative Medical decision making narrative: 19-year-old female presents emergency department with concern for suicidal ideations. Patient is medically cleared. Was seen by 1A who agreed to admit her. Patient stable hemodynamically. She has been [place] slipped. - Lab Data Result diagrams: 04/24/19 12:28 04/24/19 12:28 Lab Results 04/24/19 04/24/19 04/24/19 Range/Units 12:28 12:28 12:52 WBC 8.5 (4.3-11.1) K/mcL RBC 4.83 (3.82-4.97) M/mcL Hgb 13.7 (11.5-15.4) g/dL Hct 39.8 (35.3-44.9) % MCV 82.4 L (83.0-100.0) fL MCH 28.4 (28.0-33.3) pg MCHC 34.4 (31.6-35.5) g/dL RDW 12.5 (11.5-14.5) % Plt Count 305 (140-400) K/mcL MPV 8.4 L (9.4-12.4) fL Immature Gran % 0.6 (0-4) % Seg Neutrophils % 73.5 % Lymphocytes % 16.0 % Monocytes % 7.2 % Eosinophils % 2.0 % Basophils % 0.7 % Neutrophils # 6.3 (1.6-8.9) K/mcL Lymphocytes # 1.4 (0.6-4.6) K/mcL Monocytes # 0.6 (0.0-1.3) K/mcL Eosinophils # 0.2 (0.0-0.6) K/mcL Basophils # 0.1 (0.0-0.2) K/mcL Sodium 139 (136-145) mEq/L Potassium 3.6 (3.5-5.1) mEq/L Chloride 106 (98-107) mEq/L Carbon Dioxide 24 (23-29) mEq/L BUN 11 (6-20) mg/dL Creatinine 0.67 (0.60-1.20) mg/dL Est GFR ( Amer) > 60 (> 60) Est GFR (Non-Af Amer) > 60 (> 60) BUN/Creatinine Ratio 16 (6-26) Glucose 97 (70-105) mg/dL Calculated Osmolality 287 (280-300) Calcium 9.0 (8.6-10.3) mg/dL Urine Color Yellow (Yellow) Urine Clarity Clear (Clear) Urine pH 6.0 (5.0-8.0) pH Units Ur Specific [place] 1.025 (1.010-1.025) Urine Protein Negative (Neg-Trace) mg/dL Urine Glucose (UA) Normal (Normal) mg/dL Urine Ketones Negative (Negative) mg/dL Urine Blood Negative (Negative) Urine Nitrite Negative (Negative) Urine Bilirubin Negative (Negative) Urine Urobilinogen Normal (Normal) mg/dL Ur Leukocyte Esterase Negative (Negative) Salicylates < 2.5 L (15.0-30.0) mg/dL Urine Opiates Screen (Oelthn=342) ng/mL Ur Buprenorphine Scrn (Cutoff=5) ng/mL Acetaminophen < 10 L (10-20) mcg/mL Ur Barbiturates Screen (Uddovx=097) ng/mL Ur Phencyclidine Scrn (Cutoff=25) ng/mL Ur Amphetamines Screen (Qztagx=6739) ng/mL U Benzodiazepines Scrn (Hdjlft=870) ng/mL Urine Cocaine Screen (Cutoff= 300) ng/mL U Marijuana (THC) Screen (Cutoff = 50) ng/mL Ur Drug Screen Interp Ethyl Alcohol 10 H (Less than 10) mg/dL 04/24/19 Range/Units 12:52 WBC (4.3-11.1) K/mcL RBC (3.82-4.97) M/mcL Hgb (11.5-15.4) g/dL Hct (35.3-44.9) % MCV (83.0-100.0) fL MCH (28.0-33.3) pg MCHC (31.6-35.5) g/dL RDW (11.5-14.5) % Plt Count (140-400) K/mcL MPV (9.4-12.4) fL Immature Gran % (0-4) % Seg Neutrophils % % Lymphocytes % % Monocytes % % Eosinophils % % Basophils % % Neutrophils # (1.6-8.9) K/mcL Lymphocytes # (0.6-4.6) K/mcL Monocytes # (0.0-1.3) K/mcL Eosinophils # (0.0-0.6) K/mcL Basophils # (0.0-0.2) K/mcL Sodium (136-145) mEq/L Potassium (3.5-5.1) mEq/L Chloride (98-107) mEq/L Carbon Dioxide (23-29) mEq/L BUN (6-20) mg/dL Creatinine (0.60-1.20) mg/dL Est GFR ( Amer) (> 60) Est GFR (Non-Af Amer) (> 60) BUN/Creatinine Ratio (6-26) Glucose (70-105) mg/dL Calculated Osmolality (280-300) Calcium (8.6-10.3) mg/dL Urine Color (Yellow) Urine Clarity (Clear) Urine pH (5.0-8.0) pH Units Ur Specific [place] (1.010-1.025) Urine Protein (Neg-Trace) mg/dL Urine Glucose (UA) (Normal) mg/dL Urine Ketones (Negative) mg/dL Urine Blood (Negative) Urine Nitrite (Negative) Urine Bilirubin (Negative) Urine Urobilinogen (Normal) mg/dL Ur Leukocyte Esterase (Negative) Salicylates (15.0-30.0) mg/dL Urine Opiates Screen Negative (Ekjsbz=295) ng/mL Ur Buprenorphine Scrn Negative (Cutoff=5) ng/mL Acetaminophen (10-20) mcg/mL Ur Barbiturates Screen Negative (Uoyrvl=207) ng/mL Ur Phencyclidine Scrn Negative (Cutoff=25) ng/mL Ur Amphetamines Screen Negative (Hhkrci=5955) ng/mL U Benzodiazepines Scrn Negative (Mzhiqx=082) ng/mL Urine Cocaine Screen Negative (Cutoff= 300) ng/mL U Marijuana (THC) Screen Negative (Cutoff = 50) ng/mL Ur Drug Screen Interp See Below Ethyl Alcohol (Less than 10) mg/dL Psychiatric Medical Clearance - Medical Clearance Checklist Medical History: No Social History Section defined Current Vitals: Last Vital Signs Temp 98.3 F 04/24/19 12:43 Pulse 97 04/24/19 12:43 Resp 18 04/24/19 12:43 BP 132/85 04/24/19 12:43 Pulse Ox 96 04/24/19 12:43 Psychiatric Lab Panel: Drug Levels and Toxicity 04/24/19 04/24/19 12:28 12:52 Urine Opiates Screen Negative Acetaminophen < 10 L Ur Barbiturates Screen Negative Ur Phencyclidine Scrn Negative Ur Amphetamines Screen Negative U Benzodiazepines Scrn Negative Urine Cocaine Screen Negative U Marijuana (THC) Screen Negative Ethyl Alcohol 10 H Abnormal Labs: Abnormal lab results MCV 82.4 fL (83.0-100.0) L 04/24/19 12:28 MPV 8.4 fL (9.4-12.4) L 04/24/19 12:28 Salicylates < 2.5 mg/dL (15.0-30.0) L 04/24/19 12:28 Acetaminophen < 10 mcg/mL (10-20) L 04/24/19 12:28 Ethyl Alcohol 10 mg/dL (Less than 10) H 04/24/19 12:28 Statement of Medical Clearance: I have evaluated the patient, reviewed diagnostic information, and certify that the patient's medical condition is sufficiently stable that transfer to the psychiatric unit does not pose a significant risk of deterioration. Attestation Statement - Attestation Attestation: I examined this patient and my medical decision-making was reviewed with the Resident Physician. I agree with the documented findings, disposition and treatment plan as described except to the extent set forth below. Patient voices no suicidal ideation. The patient states that she has depression. The patient probably also has borderline personality disorder. Patient has no chest pain and examination, regular rate and rhythm. Patient has been evaluated by psychiatric services and is going to be admitted to psychiatric services at this time. The patient is medically clear here in the emergency room.
[2019-04-24] MEDS ORDERED: Acetaminophen 325 MG TABLET PO PRN (15:51)
[2019-04-24] MEDS ORDERED: *HR* LORazepam 1 MG TABLET PO PRN (15:51)
[2019-04-24] MEDS ORDERED: Mag Hydrox/Al Hydrox/Simeth 30 ML UDC PO PRN (15:51)
[2019-04-24] MEDS ORDERED: traZODone 50 MG TABLET PO PRN (15:51)
[2019-04-24] MEDS ORDERED: hydrOXYzine pamoate 25 MG CAPSULE PO PRN (15:51)
[2019-04-24] MEDS ORDERED: Haloperidol Lactate 5 MG/ML VIAL IM PRN (15:51)
[2019-04-24] MEDS ORDERED: MOM Conc 10 ML UD.LIQ PO PRN (15:51)
[2019-04-24] MEDS ORDERED: *HR* LORazepam 2 MG/ML VIAL IM PRN (15:51)
[2019-04-25 09:43] VITALS: BP 116/83
--- NOTE | 2019-04-25 11:55 | Discharge Summary ---
<RandaroderickarRoxie Chema - Last Filed: 04/25/19 12:08> Date of Encounter: 04/25/19 Time of Encounter: 11:54 History of Present Illness Chief complaint: Suicidal ideation Admitted From: Emergency Dept History of Present Illness: Ms. Null is a 19 year old female with PMH of anxiety, depression, PTSD GERD who presented to ED with suicidal ideation. She had gotten into a fight with her mom over the safety of her siblings. The mother proceeded to kick her out of the house. The patient on presentation stated that she has a gun at home, knows how to loaded, and will shoot herself. On exam today, patient denies current SI/HI. Reports long history of psychosocial stressors, difficult childhood, and poor family function. Her current visit stems from argument with mom who she currently lives with after moving out when she was 15 years old. Reports saving up money to move out. Psychiatric history is significant for prior 1A hospitalization in October 2018 due to suicidal ideation also after moving back in with mom. Reports taking Effexor 150mg qd; was initially increased to 300mg qd when hospitalized but patient decreased to 150mg due to feeling tired on 300mg. Denies benefit with abilify. Reports prior use of vistaril and prazosin which both helped for acute anxiety and nightmares, respectively. Denies hallucinations or delusions. Reports good concentration, fluctuating energy and poor sleep with nightmares. Patient works at a [email or web address] which she enjoys, smokes cigarettes, occasional alcohol use, and remote history of marijuana use. Would like to leave and take care of her 9-week-old blood hound puppy. Past Med Surg Social Fam HX - Past Medical History Medical history: GERD - Past Surgical History Surgical History: orthopedic, other - Social History Smoking Status: Never smoker Smokeless Tobacco Status: No Alcohol use: occasionally Drug use: none Medications - Discharge Medications Albuterol Sulfate [Proventil Inhaler] 2 puff IH Q6H PRN 10/10/18 [History] Biotin 1,000 mcg PO DAILY 10/10/18 [History] Cetirizine HCl [Zyrtec] 10 mg PO DAILY PRN 10/10/18 [History] Fluticasone Propionate Nasal [Flonase] 1 spray NS BID PRN 10/10/18 [History] Omeprazole [PriLOSEC] 40 mg PO DAILY 10/10/18 [History] Venlafaxine XR (24 HR) [Effexor Xr] 300 mg PO DAILY 04/24/19 [History] Allergy/AdvReac Type Severity Reaction Status Date / Time dicyclomine [From Bentyl] AdvReac Numbness Verified 10/06/18 08:51 Review of Systems Constitutional: Denies: fever, chills Eyes: Denies: vision change Ears, Nose, Throat: Denies: hearing loss Cardiovascular: Denies: chest pain, palpitations Respiratory: Denies: cough, dyspnea Gastrointestinal: Denies: abdominal pain, nausea Genitourinary female: Denies: dysuria Musculoskeletal: Denies: back pain, joint pain Integumentary: Denies: rash, lesions Neurological: Denies: headache, weakness Psychiatric: Reports: depression, anxiety, abnormal sleep pattern, suicidal ideation, irritability, mood swings. Denies: homicidal ideation, auditory hallucinations, visual hallucinations Endocrine: Denies: fatigue Hematologic/Lymphatic: Denies: easy bruising Allergic/Immunologic: Denies: urticaria Exam - HEENT Head exam IM: Present: atraumatic, normocephalic Eye exam IM: Present: EOMI, normal appearance ENT exam IM: Present: mucous membranes moist - Neurological Neurological exam: Present: CN II-XII intact (grossly) - Respiratory Respiratory exam IM: Absent: respiratory distress - GI/Abdominal GI/Abdominal exam IM: Absent: no peritoneal signs - Extremities Extremities exam IM: Present: full ROM. Absent: joint swelling - Skin Skin exam IM: Present: dry, warm. Absent: abrasion, rash - Constitutional Vitals: Temp Pulse Resp BP Pulse Ox 98.2 F 99 20 116/83 97 04/25/19 09:00 04/25/19 09:00 04/25/19 09:00 04/25/19 09:00 04/25/19 09:00 General appearance: age & developmentally appropriate, well-groomed, obese - Musculoskeletal Gait: normal Station: relaxed Strength & Tone: normal for patient - Psychiatric Patient Orientation: Yes Person, Yes Time, Yes Place, Yes Circumstance Level of alertness: Alert, Follows commands Behavior: calm, cooperative Psychomotor activity: Normal Eye Contact: Maintains Eye Contact Mood Description: Anxious Affect description: full range Speech Volume: Normal Speech pattern: normal rate, normal rhythm, normal tone, fluent, spontaneous Language & Vocabulary: consistent with education Thought Process: Intact, Logical, Linear, Goal Oriented Thought Content: No Suicidal ideation, No Homicidal ideation, No Overt delusions Perceptual Disturbances: No Auditory hallucinations, No Visual hallucinations Attention Span Ability: Capable of Focused Attention Memory Description: Grossly Intact Patient Reliability: Reliable Historian Fund of knowledge: Yes average Intelligence Estimate: Average Judgment: Good Insight: Full Results - Drug Levels and Toxicology Drug Levels and Toxicology: Drug Levels and Toxicity 04/24/19 04/24/19 12:28 12:52 Urine Opiates Screen Negative Acetaminophen < 10 L Ur Barbiturates Screen Negative Ur Phencyclidine Scrn Negative Ur Amphetamines Screen Negative U Benzodiazepines Scrn Negative Urine Cocaine Screen Negative U Marijuana (THC) Screen Negative Ethyl Alcohol 10 H - Labs Labs: Laboratory Last Values WBC 8.5 K/mcL (4.3-11.1) 04/24/19 12:28 RBC 4.83 M/mcL (3.82-4.97) 04/24/19 12:28 Hgb 13.7 g/dL (11.5-15.4) 04/24/19 12:28 Hct 39.8 % (35.3-44.9) 04/24/19 12:28 MCV 82.4 fL (83.0-100.0) L 04/24/19 12:28 MCH 28.4 pg (28.0-33.3) 04/24/19 12:28 MCHC 34.4 g/dL (31.6-35.5) 04/24/19 12:28 RDW 12.5 % (11.5-14.5) 04/24/19 12:28 Plt Count 305 K/mcL (140-400) 04/24/19 12:28 MPV 8.4 fL (9.4-12.4) L 04/24/19 12:28 Immature Gran % 0.6 % (0-4) 04/24/19 12:28 Seg Neutrophils % 73.5 % 04/24/19 12:28 Lymphocytes % 16.0 % 04/24/19 12:28 Monocytes % 7.2 % 04/24/19 12:28 Eosinophils % 2.0 % 04/24/19 12:28 Basophils % 0.7 % 04/24/19 12:28 Neutrophils # 6.3 K/mcL (1.6-8.9) 04/24/19 12:28 Lymphocytes # 1.4 K/mcL (0.6-4.6) 04/24/19 12:28 Monocytes # 0.6 K/mcL (0.0-1.3) 04/24/19 12:28 Eosinophils # 0.2 K/mcL (0.0-0.6) 04/24/19 12:28 Basophils # 0.1 K/mcL (0.0-0.2) 04/24/19 12:28 Sodium 139 mEq/L (136-145) 04/24/19 12:28 Potassium 3.6 mEq/L (3.5-5.1) 04/24/19 12:28 Chloride 106 mEq/L (98-107) 04/24/19 12:28 Carbon Dioxide 24 mEq/L (23-29) 04/24/19 12:28 BUN 11 mg/dL (6-20) 04/24/19 12:28 Creatinine 0.67 mg/dL (0.60-1.20) 04/24/19 12:28 Est GFR ( Amer) > 60 (> 60) 04/24/19 12:28 Est GFR (Non-Af Amer) > 60 (> 60) 04/24/19 12:28 BUN/Creatinine Ratio 16 (6-26) 04/24/19 12:28 Glucose 97 mg/dL (70-105) 04/24/19 12:28 Calculated Osmolality 287 (280-300) 04/24/19 12:28 Calcium 9.0 mg/dL (8.6-10.3) 04/24/19 12:28 Urine Color Yellow (Yellow) 04/24/19 12:52 Urine Clarity Clear (Clear) 04/24/19 12:52 Urine pH 6.0 pH Units (5.0-8.0) 04/24/19 12:52 Ur Specific [place] 1.025 (1.010-1.025) 04/24/19 12:52 Urine Protein Negative mg/dL (Neg-Trace) 04/24/19 12:52 Urine Glucose (UA) Normal mg/dL (Normal) 04/24/19 12:52 Urine Ketones Negative mg/dL (Negative) 04/24/19 12:52 Urine Blood Negative (Negative) 04/24/19 12:52 Urine Nitrite Negative (Negative) 04/24/19 12:52 Urine Bilirubin Negative (Negative) 04/24/19 12:52 Urine Urobilinogen Normal mg/dL (Normal) 04/24/19 12:52 Ur Leukocyte Esterase Negative (Negative) 04/24/19 12:52 Salicylates < 2.5 mg/dL (15.0-30.0) L 04/24/19 12:28 Urine Opiates Screen Negative ng/mL (Iebduu=828) 04/24/19 12:52 Ur Buprenorphine Scrn Negative ng/mL (Cutoff=5) 04/24/19 12:52 Acetaminophen < 10 mcg/mL (10-20) L 04/24/19 12:28 Ur Barbiturates Screen Negative ng/mL (Hdtrjv=139) 04/24/19 12:52 Ur Phencyclidine Scrn Negative ng/mL (Cutoff=25) 04/24/19 12:52 Ur Amphetamines Screen Negative ng/mL (Yzenlu=9233) 04/24/19 12:52 U Benzodiazepines Scrn Negative ng/mL (Tvtmwe=518) 04/24/19 12:52 Urine Cocaine Screen Negative ng/mL (Cutoff= 300) 04/24/19 12:52 U Marijuana (THC) Screen Negative ng/mL (Cutoff = 50) 04/24/19 12:52 Ur Drug Screen Interp See Below 04/24/19 12:52 Ethyl Alcohol 10 mg/dL (Less than 10) H 04/24/19 12:28 Diagnosis - Discharge Diagnosis (1) Major depressive disorder, recurrent, severe w/o psychotic behavior Priority: Primary Status: Acute Assessment and Plan - Patient/Caregiver Discharge Instructions Activity: resume usual activities as tolerated Diet: regular diet - Follow up Plan Follow up with: [facility] [Outside] - 05/22/19 2:00 pm (You have an appointment on 05/22/19 2:00pm with Dr. Raphael for counseling and will see Douglas Ramirez on 06/05/19 @5:00pm for medication management. ) Functional capacity at discharge: independent ambulation Overall status at discharge: patient is back to baseline Disposition: Home, Self-Care Provider Date of admission: 04/24/19 15:42 Primary care physician: PCP NONE Discharging clinician: Jael Deras Hospital Course Hospital course: Ms. Null is a 19 year old female with PMH of anxiety, depression, PTSD GERD who presented to ED with suicidal ideation. She had gotten into a fight with her mom over the safety of her siblings. The mother proceeded to kick her out of the house. The patient on presentation stated that she has a gun at home, knows how to loaded, and will shoot herself. Today, the patient denies current SI/HI. Reports long history of psychosocial stressors, difficult childhood, and poor family function. Her current visit stems from argument with mom who she currently lives with after moving out when she was 15 years old. Reports saving up money to move out. Psychiatric history is significant for prior 1A hospitalization in October 2018 due to suicidal ideation also after moving back in with mom. Reports taking Effexor 150mg qd; was initially increased to 300mg qd when hospitalized but patient decreased to 150mg due to feeling tired on 300mg. Denies benefit with abilify. Reports prior use of vistaril and prazosin which both helped for acute anxiety and nightmares, respectively. Denies hallucinations or delusions. Reports good concentration, fluctuating energy and poor sleep with nightmares. Patient works at a [email or web address] which she enjoys, smokes cigarettes, occasional alcohol use, and remote history of marijuana use. Would like to leave and take care of her 9-week-old blood hound puppy. Over the course of hospitalization, suicidal ideation had resolved and she has a plan for discharge of staying with her mom if allowed or with her step mom as an alternative. Her mood has significantly improved and she remains goal oriented. Time spent discussing smoking cessation with patient: 3 to 10 minutes Does patient wish to continue nicotine replacement upon disc: No - Time Spent with Patient Total time spent providing and/or coordinating discharge services: Quality - Multiple Antipsychotics Patient discharged on 2 or more antipsychotic medications: No <Jael Deras - Last Filed: 04/25/19 13:23> Date of Encounter: 04/25/19 History of Present Illness History of Present Illness: Ms. Null is a 19 year old female Exam - Constitutional Vitals: Temp Pulse Resp BP Pulse Ox 98.2 F 99 20 116/83 97 04/25/19 09:00 04/25/19 09:00 04/25/19 09:00 04/25/19 09:00 04/25/19 09:00 Results - Drug Levels and Toxicology Drug Levels and Toxicology: Drug Levels and Toxicity 04/24/19 04/24/19 12:28 12:52 Urine Opiates Screen Negative Acetaminophen < 10 L Ur Barbiturates Screen Negative Ur Phencyclidine Scrn Negative Ur Amphetamines Screen Negative U Benzodiazepines Scrn Negative Urine Cocaine Screen Negative U Marijuana (THC) Screen Negative Ethyl Alcohol 10 H - Labs Labs: Laboratory Last Values WBC 8.5 K/mcL (4.3-11.1) 04/24/19 12:28 RBC 4.83 M/mcL (3.82-4.97) 04/24/19 12:28 Hgb 13.7 g/dL (11.5-15.4) 04/24/19 12:28 Hct 39.8 % (35.3-44.9) 04/24/19 12:28 MCV 82.4 fL (83.0-100.0) L 04/24/19 12:28 MCH 28.4 pg (28.0-33.3) 04/24/19 12:28 MCHC 34.4 g/dL (31.6-35.5) 04/24/19 12:28 RDW 12.5 % (11.5-14.5) 04/24/19 12:28 Plt Count 305 K/mcL (140-400) 04/24/19 12:28 MPV 8.4 fL (9.4-12.4) L 04/24/19 12:28 Immature Gran % 0.6 % (0-4) 04/24/19 12:28 Seg Neutrophils % 73.5 % 04/24/19 12:28 Lymphocytes % 16.0 % 04/24/19 12:28 Monocytes % 7.2 % 04/24/19 12:28 Eosinophils % 2.0 % 04/24/19 12:28 Basophils % 0.7 % 04/24/19 12:28 Neutrophils # 6.3 K/mcL (1.6-8.9) 04/24/19 12:28 Lymphocytes # 1.4 K/mcL (0.6-4.6) 04/24/19 12:28 Monocytes # 0.6 K/mcL (0.0-1.3) 04/24/19 12:28 Eosinophils # 0.2 K/mcL (0.0-0.6) 04/24/19 12:28 Basophils # 0.1 K/mcL (0.0-0.2) 04/24/19 12:28 Sodium 139 mEq/L (136-145) 04/24/19 12:28 Potassium 3.6 mEq/L (3.5-5.1) 04/24/19 12:28 Chloride 106 mEq/L (98-107) 04/24/19 12:28 Carbon Dioxide 24 mEq/L (23-29) 04/24/19 12:28 BUN 11 mg/dL (6-20) 04/24/19 12:28 Creatinine 0.67 mg/dL (0.60-1.20) 04/24/19 12:28 Est GFR ( Amer) > 60 (> 60) 04/24/19 12:28 Est GFR (Non-Af Amer) > 60 (> 60) 04/24/19 12:28 BUN/Creatinine Ratio 16 (6-26) 04/24/19 12:28 Glucose 97 mg/dL (70-105) 04/24/19 12:28 Calculated Osmolality 287 (280-300) 04/24/19 12:28 Calcium 9.0 mg/dL (8.6-10.3) 04/24/19 12:28 Urine Color Yellow (Yellow) 04/24/19 12:52 Urine Clarity Clear (Clear) 04/24/19 12:52 Urine pH 6.0 pH Units (5.0-8.0) 04/24/19 12:52 Ur Specific [place] 1.025 (1.010-1.025) 04/24/19 12:52 Urine Protein Negative mg/dL (Neg-Trace) 04/24/19 12:52 Urine Glucose (UA) Normal mg/dL (Normal) 04/24/19 12:52 Urine Ketones Negative mg/dL (Negative) 04/24/19 12:52 Urine Blood Negative (Negative) 04/24/19 12:52 Urine Nitrite Negative (Negative) 04/24/19 12:52 Urine Bilirubin Negative (Negative) 04/24/19 12:52 Urine Urobilinogen Normal mg/dL (Normal) 04/24/19 12:52 Ur Leukocyte Esterase Negative (Negative) 04/24/19 12:52 Salicylates < 2.5 mg/dL (15.0-30.0) L 04/24/19 12:28 Urine Opiates Screen Negative ng/mL (Swxdrm=377) 04/24/19 12:52 Ur Buprenorphine Scrn Negative ng/mL (Cutoff=5) 04/24/19 12:52 Acetaminophen < 10 mcg/mL (10-20) L 04/24/19 12:28 Ur Barbiturates Screen Negative ng/mL (Djbklh=844) 04/24/19 12:52 Ur Phencyclidine Scrn Negative ng/mL (Cutoff=25) 04/24/19 12:52 Ur Amphetamines Screen Negative ng/mL (Sfmait=7905) 04/24/19 12:52 U Benzodiazepines Scrn Negative ng/mL (Jtdspk=722) 04/24/19 12:52 Urine Cocaine Screen Negative ng/mL (Cutoff= 300) 04/24/19 12:52 U Marijuana (THC) Screen Negative ng/mL (Cutoff = 50) 04/24/19 12:52 Ur Drug Screen Interp See Below 04/24/19 12:52 Ethyl Alcohol 10 mg/dL (Less than 10) H 04/24/19 12:28 Assessment and Plan - Patient/Caregiver Discharge Instructions Activity: resume usual activities as tolerated Diet: regular diet - Follow up Plan Functional capacity at discharge: independent ambulation Overall status at discharge: Stable Provider Date of admission: 04/24/19 15:42 Primary care physician: PCP NONE Hospital Course Hospital course: Ms. Null is a 19 year old female - Time Spent with Patient Total time spent providing and/or coordinating discharge services:
== END 2019-04-25 13:25 | disposition home or self-care (01) ==
LOC: EMEROOARM 12:14 → 1ANU 12:14
PROVIDERS: ADMIT Psychiatry & Neurology Psychiatry; ATTEND Psychiatry & Neurology Psychiatry

== ENCOUNTER 2021-05-12 14:25 | Observation (INO) ==
[2021-05-12 15:20] LABS: Basophils # 0.1 K/mcL (0.0-0.2); Basophils % 0.4 %; Eosinophils # 0.2 K/mcL (0.0-0.6); Eosinophils % 1.3 %; Hematocrit 40.7 % (35.3-44.9); Hemoglobin 14.1 g/dL (11.5-15.4); Immature Granulocytes % 0.5 % (0-4); Lymphocytes # 1.6 K/mcL (0.6-4.6); Lymphocytes % 14.2 %; Mean Corpuscular HGB Conc 34.6 g/dL (31.6-35.5); Mean Corpuscular Hemoglobin 28.4 pg (28.0-33.3); Mean Corpuscular Volume 81.9 fL (83.0-100.0); Mean Platelet Volume 8.5 fL (9.4-12.4); Monocytes # 0.9 K/mcL (0.0-1.3); Monocytes % 7.4 %; Neutrophils # 8.7 K/mcL (1.6-8.9); Platelet Count 388 K/mcL (140-400); Red Blood Count 4.97 M/mcL (3.82-4.97); Red Cell Distribution Width 12.7 % (11.5-14.5); Segmented Neutrophils % 76.2 %; White Blood Count 11.4 K/mcL (4.3-11.1)
[2021-05-12 15:21] LABS: Bilirubin,Urine Negative (Negative); Blood,Urine Negative (Negative); Clarity,Urine Clear (Clear); Color,Urine Yellow (Yellow); Glucose,Urine (UA) Normal (Normal); Ketones,Urine Negative (Negative); Leukocyte Esterase,Urine Negative (Negative); Mucus,Urine Few per lpf (None-Few); Nitrite,Urine Negative (Negative); Protein,Urine 30 mg/dL (Neg-Trace); Specific Gravity,Urine > 1.030 (1.010-1.025); Squamous Epithelial Cell,Urine Few per hpf (None-Few); Urobilinogen,Urine Normal (Normal); WBC,Urine 0-3 per hpf (0-3)
[2021-05-12 15:41] LABS: Acetaminophen < 10 mcg/mL (10-20); Amphetamine Screen,Urine Negative ng/mL (Cutoff=1000); BUN/Creatinine Ratio 16 (6-26); Barbiturate Screen,Urine Negative ng/mL (Cutoff=200); Benzodiazepines Screen,Urine Negative ng/mL (Cutoff=200); Blood Urea Nitrogen 12 mg/dL (6-20); Calcium 9.4 mg/dL (8.6-10.3); Cannabinoid Screen,Urine Positive ng/mL (Cutoff = 50); Carbon Dioxide 24 mEq/L (23-29); Chloride 106 mEq/L (98-107); Cocaine Screen,Urine Negative ng/mL (Cutoff= 300); Ethanol < 10 mg/dL (Less than 10); Glucose 85 mg/dL (70-105); Opiate Screen,Urine Negative ng/mL (Cutoff=300); Osmolality,Calculated 287 (280-300); Phencyclidine Screen,Urine Negative ng/mL (Cutoff=25); Potassium 3.8 mEq/L (3.5-5.1); Salicylate < 2.5 mg/dL (15.0-30.0); Sodium 139 mEq/L (136-145); eGFR For African Americans > 60 (> 60); eGFR For Non-African Americans > 60 (> 60)
[2021-05-12] MEDS ORDERED: Haloperidol Lactate 5 MG/ML VIAL IM PRN (22:05)
[2021-05-12] MEDS ORDERED: haloperidoL 5 MG TABLET PO PRN (22:05)
[2021-05-12] MEDS ORDERED: *HR* LORazepam 1 MG TABLET PO PRN (22:05)
[2021-05-12] MEDS ORDERED: traZODone 50 MG TABLET PO PRN (22:05)
[2021-05-12] MEDS ORDERED: Acetaminophen 325 MG TABLET PO PRN (22:05)
[2021-05-12] MEDS ORDERED: hydrOXYzine pamoate 25 MG CAPSULE PO PRN (22:05)
[2021-05-12] MEDS ORDERED: *HR* LORazepam 2 MG/ML VIAL IM PRN (22:05)
[2021-05-13 10:19] VITALS: BP 106/81; PULSE 92; TEMP 98.1; O2SAT 97
[2021-05-13] MEDS ORDERED: MOM Conc 10 ML UD.LIQ PO PRN (12:56)
[2021-05-13] MEDS ORDERED: Mag Hydrox/Al Hydrox/Simeth 30 ML UDC PO PRN (12:56)
== END 2021-05-13 13:55 | disposition home or self-care (01) ==
LOC: 1ANU 14:25 → EMEROOARM 14:25 → 1ANU 23:20
PROVIDERS: ADMIT Psychiatry & Neurology Psychiatry; ATTEND Psychiatry & Neurology Psychiatry

== ENCOUNTER → 2022-05-11 21:25 | Observation (INO) ==
[2022-05-11 20:22] LABS: Bacteria,Urine Few per hpf (None-Few); Bilirubin,Urine Negative (Negative); Blood,Urine Negative (Negative); Calcium Oxalate Crystals,Urine Present per hpf; Clarity,Urine Clear (Clear); Color,Urine Yellow (Yellow); Glucose,Urine (UA) Normal (Normal); Ketones,Urine Trace mg/dL (Negative); Leukocyte Esterase,Urine Negative (Negative); Mucus,Urine Few per lpf (None-Few); Nitrite,Urine Negative (Negative); PH,Urine 5.5 pH Units (5.0-8.0); Protein,Urine 30 mg/dL (Neg-Trace); Specific Gravity,Urine > 1.030 (1.010-1.025); Squamous Epithelial Cell,Urine Moderate per hpf (None-Few); Urobilinogen,Urine Normal (Normal)
[2022-05-11 22:01] LABS: Candida DNA Not Detected (Not Detect); Gardnerella DNA Not Detected (Not Detect); Trichomonas DNA Not Detected (Not Detect)
== END | disposition home or self-care (01) ==
LOC: 1NENULAB
PROVIDERS: ADMIT Advanced Practice Midwife; ATTEND Advanced Practice Midwife

== ENCOUNTER → 2022-06-01 11:20 | Observation (INO) ==
[2022-06-01 10:40] LABS: Bacteria,Urine Few per hpf (None-Few); Bilirubin,Urine Negative (Negative); Blood,Urine Negative (Negative); Clarity,Urine Turbid (Clear); Color,Urine Yellow (Yellow); Glucose,Urine (UA) Normal (Normal); Ketones,Urine Negative (Negative); Leukocyte Esterase,Urine Negative (Negative); Mucus,Urine Few per lpf (None-Few); Nitrite,Urine Negative (Negative); PH,Urine 7.5 pH Units (5.0-8.0); Protein,Urine 30 mg/dL (Neg-Trace); RBC,Urine 0-3 per hpf (0-3); Specific Gravity,Urine 1.023 (1.010-1.025); Squamous Epithelial Cell,Urine Moderate per hpf (None-Few); Urobilinogen,Urine Normal (Normal); WBC,Urine 0-3 per hpf (0-3)
== END | disposition home or self-care (01) ==
LOC: 1NENULAB
PROVIDERS: ADMIT Obstetrics & Gynecology; ATTEND Obstetrics & Gynecology